=== PATIENT | male | born 1965 | race Two or more races ===

== ENCOUNTER → 2023-11-26 | Outpatient (CLI) | payer MEDICAID ==
[2023-11-26 07:26] LABS: Basophils # (auto) 0 10 ^3/uL (0-0.2); Basophils % (auto) 0.9 % (0.0-2.0); Eosinophils # (auto) 0.1 10 ^3/uL (0-0.8); Eosinophils % (auto) 2.5 % (0.0-7.0); Hematocrit 45.4 % (41.0-53.0); Hemoglobin 15.6 g/dL (13.5-17.5); Lymphocytes # (auto) 2.9 10 ^3/uL (0.4-5.4); Lymphocytes % (auto) 50.3 % (10.0-50.0); Mean Corpuscular Hemoglobin 31.2 pg (28.0-32.0); Mean Corpuscular Hgb Conc. 34.4 g/dL (32.0-36.0); Mean Corpuscular Volume 90.8 fL (80.0-100.0); Monocytes # (auto) 0.5 10 ^3/uL (0-1.3); Neutrophils # (auto) 2.2 10 ^3/uL (1.6-8.6); Neutrophils % (auto) 38.3 % (37.0-80.0); Nucleated Red Blood Cells % 0.4 %; Red Cell Distribution Width 13.3 % (11.8-14.3); White Blood Cell 5.8 10^3/uL (4.4-10.8)
[2023-11-26 08:05] LABS: Alanine Aminotransferase 65 U/L (7-40); Alkaline Phosphatase 44 U/L (46-116); Anion Gap 5 (5-15); Aspartate Aminotransferase 41 U/L (13-40); BUN/Creatinine Ratio 12.8 (10.0-20.0); Blood Urea Nitrogen 11 mg/dL (9-23); Calcium 9.2 mg/dL (8.5-10.1); Carbon Dioxide 29 mmol/L (20-30); Chloride 105 mmol/L (98-107); Glucose 169 mg/dL (74-106); LDL Cholesterol 57 mg/dL (< 100); Potassium 4.3 mmol/L (3.5-5.1); Sodium 139 mmol/L (136-145); Triglycerides 76 mg/dL (< 150)
[2023-11-26 08:06] LABS: Albumin 4.4 g/dL (3.2-4.8); Cholesterol 125 mg/dL (< 200); HDL Cholesterol 58 mg/dL (40-59); Total Protein 7.1 g/dL (5.7-8.2)
[2023-11-26 08:12] LABS: Creatinine, Urine 141.15 mg/dL (30.0-125.0)
[2023-11-26 08:40] LABS: Prostate Specific Antigen 0.89 ng/mL (0.0-4.0)
[2023-11-26 08:45] LABS: Free T4 (Free Thyroxine) 1.25 ng/dL (0.89-1.76)
[2023-11-29 08:43] LABS: Hepatitis B Surface Antigen Negative (Negative)
[2023-11-29 09:04] LABS: Hepatitis A Ab IgM Negative
[2023-11-29 09:05] LABS: Hepatitis B Core IgM Negative
[2023-11-29 11:58] LABS: Hepatitis C Antibody Positive (Negative)
== END | disposition home or self-care (01) ==
LOC: LAB 06:59
PROVIDERS: ATTEND Nurse Practitioner Family
DX: E11.65 Type 2 diabetes mellitus with hyperglycemia (principal); K76.0 Fatty (change of) liver, not elsewhere classified; R35.1 Nocturia
CPT/HCPCS: 36415; 80053; 80061; 82043; 82570; 83036; 84153; 84439; 84443; 85025; 86705; 86709; 86803; 87340

== ENCOUNTER → 2023-12-01 | Outpatient (CLI) | payer MEDICAID | END | disposition home or self-care (01) | LOC: LAB 07:30 | PROVIDERS: ATTEND Nurse Practitioner Family | DX: B18.2 Chronic viral hepatitis C (principal) | CPT/HCPCS: 86701; 86703 ==

== ENCOUNTER → 2024-11-01 | Outpatient (CLI) | payer MEDICAID ==
[2024-11-01 10:56] LABS: Basophils # (auto) 0 10 ^3/uL (0-0.2); Basophils % (auto) 0.8 % (0.0-2.0); Eosinophils # (auto) 0.1 10 ^3/uL (0-0.8); Eosinophils % (auto) 1.7 % (0.0-7.0); Hematocrit 48.4 % (41.0-53.0); Hemoglobin 16.5 g/dL (13.5-17.5); Lymphocytes # (auto) 2.6 10 ^3/uL (0.4-5.4); Lymphocytes % (auto) 44.7 % (10.0-50.0); Mean Corpuscular Hemoglobin 31.1 pg (28.0-32.0); Mean Corpuscular Hgb Conc. 34.1 g/dL (32.0-36.0); Mean Corpuscular Volume 91.3 fL (80.0-100.0); Monocytes # (auto) 0.5 10 ^3/uL (0-1.3); Monocytes % (auto) 7.9 % (0.0-12.0); Neutrophils # (auto) 2.6 10 ^3/uL (1.6-8.6); Neutrophils % (auto) 44.9 % (37.0-80.0); Nucleated Red Blood Cells % 0.3 %; Platelet Count (auto) 234 10^3/uL (140-450); Red Cell Distribution Width 13.4 % (11.8-14.3); White Blood Cell 5.8 10^3/uL (4.4-10.8)
[2024-11-01 11:29] LABS: Albumin 4.8 g/dL (3.2-4.8); Alkaline Phosphatase 48 U/L (46-116); Anion Gap 8 (5-15); BUN/Creatinine Ratio 14.1 (10.0-20.0); Blood Urea Nitrogen 13 mg/dL (9-23); Calcium 9.9 mg/dL (8.7-10.4); Carbon Dioxide 29 mmol/L (20-31); Chloride 106 mmol/L (98-107); LDL Cholesterol 60 mg/dL (< 100); Sodium 143 mmol/L (136-145); Triglycerides 89 mg/dL (< 150)
[2024-11-01 11:30] LABS: Cholesterol 145 mg/dL (< 200); Total Protein 7.6 g/dL (5.7-8.2)
[2024-11-01 11:40] LABS: Alanine Aminotransferase 131 U/L (7-40); Aspartate Aminotransferase 73 U/L (13-40); Glucose 121 mg/dL (74-106); HDL Cholesterol 70 mg/dL (40-59)
[2024-11-01 11:46] LABS: Creatinine, Urine 182.41 mg/dL (30.0-125.0)
== END | disposition home or self-care (01) ==
LOC: LAB 10:18
PROVIDERS: ATTEND Nurse Practitioner Family
DX: Z00.01 Encounter for general adult medical examination with abnormal findings (principal); E11.65 Type 2 diabetes mellitus with hyperglycemia; E03.9 Hypothyroidism, unspecified; R35.1 Nocturia
CPT/HCPCS: 36415; 80053; 80061; 82043; 82570; 83036; 84153; 84443; 85025